=== PATIENT | male | born 1960 | race Caucasian/White ===

== ENCOUNTER 2024-07-03 17:05 | Inpatient (IN) | payer OTHER ==
[2024-07-03 17:56] LABS: #Basophils 0.06 10x3/uL (0.0-0.2); %Basophils 0.6 % (0.0-1.0); %Eosinophils 10.3 % (0.0-10.0); %Lymphocytes 19.2 % (21.0-51.0); %Monocytes 7.6 % (0.0-10.0); %Neutrophils 61.9 % (42.0-75.0); Hematocrit 30.1 % (42.0-52.0); Mean Corpuscular HGB CONC 36.5 g/dL (32.0-36.0); Mean Corpuscular Hemoglobin 29.8 pg (27.0-31.0); Mean Corpuscular Volume 81.6 fL (78.0-98.0); Mean Platelet Volume 10.4 fL (7.4-10.4); Platelet Count 270 10x3/uL (130-400); RBC Distribution Width 12.3 % (11.5-14.5); Red Blood Cell (RBC) Count 3.69 mill/uL (4.70-6.10)
[2024-07-03 18:10] LABS: ALT (SGPT) 8 U/L (8-55); AST (SGOT) 15 U/L (5-34); Albumin 3.7 g/dL (3.4-4.8); Alkaline Phosphatase 92 U/L (40-110); Anion Gap 19 mmol/L (10-20); BUN (Urea Nitrogen) 58 mg/dL (8.4-25.7); Bilirubin, Total 0.3 mg/dL (0.2-1.2); Calc. Creatinine Clearance 0 mL/min (70-130); Calcium 8.2 mg/dL (7.8-10.44); Carbon Dioxide 19 mmol/L (23-31); Chloride 96 mmol/L (98-107); Estimated GFR 11; Globulin 4.1 g/dL (2.4-3.5); Glucose 205 mg/dL (80-115); Lipase 43 U/L (8-78); Magnesium 1.8 mg/dL (1.6-2.6); Potassium 4.5 mmol/L (3.5-5.1); Protein, Total 7.8 g/dL (5.8-8.1); Sodium 129 mmol/L (136-145)
[2024-07-03 18:16] LABS: Troponin I 0.062 ng/mL (< 0.028)
[2024-07-03] MEDS ORDERED: Aspirin Chewable 81 MG TAB ONE (18:59)
[2024-07-03] MEDS ORDERED: fentaNYL 50 mcg/mL 1 mL Vial ONE (19:28)
[2024-07-03 20:53] LABS: Troponin I 0.049 ng/mL (< 0.028)
[2024-07-03] MEDS ORDERED: Ondansetron ODT 4 MG TAB PO PRN (23:41)
[2024-07-03] MEDS ORDERED: Ondansetron PF 4 MG/2 ML Vial IVP PRN (23:41)
[2024-07-03] MEDS ORDERED: Acetaminophen 650 MG Suppository PR PRN (23:41)
[2024-07-04] MEDS ORDERED: Glucagon 1 MG/ML KIT IM PRN (00:14)
[2024-07-04] MEDS ORDERED: Insulin Lispro 100 UNIT/ML 10 ML VIAL SC PRN (00:14)
[2024-07-04] MEDS ORDERED: Dextrose 50% Abboject 50 ML SYRINGE SLOW IVP PRN (00:14)
[2024-07-04] MEDS ORDERED: Dextrose 5% in Water 1,000 ML IV PRN (00:14)
[2024-07-04] MEDS: Lidocaine 4% Patch TD SCH (00:38)
[2024-07-04] MEDS: traMADol HCl 50 MG TAB PO SCH (00:38)
[2024-07-04] MEDS: Sodium Chloride 0.9% 500 ML IV SCH (00:39)
[2024-07-04 00:40] LABS: Hemoglobin A1c 6.6 % (4.0-6.0)
[2024-07-04 00:42] LABS: Anion Gap 17 mmol/L (10-20); BUN (Urea Nitrogen) 59 mg/dL (8.4-25.7); Calc. Creatinine Clearance 20 mL/min (70-130); Calcium 8.2 mg/dL (7.8-10.44); Carbon Dioxide 18 mmol/L (23-31); Cardiac Risk 6.2 (Less than 4.5); Chloride 99 mmol/L (98-107); Cholesterol 161 mg/dl (< 200 Desired); Estimated GFR 11; Glucose 211 mg/dL (80-115); HDL Cholesterol 26 mg/dL (>60 Neg Risk); LDL Cholesterol, Calculated 94 mg/dL; Magnesium 1.8 mg/dL (1.6-2.6); Potassium 4.2 mmol/L (3.5-5.1); Sodium 130 mmol/L (136-145); Triglycerides 206 mg/dL (Less than 150)
[2024-07-04 00:47] LABS: Troponin I 0.066 ng/mL (< 0.028)
[2024-07-04] MEDS: Insulin Lispro 100 UNIT/ML 10 ML VIAL SC PRN (06:20)
[2024-07-04] MEDS: Famotidine 20 MG TAB PO SCH (08:58)
[2024-07-04] MEDS: Amlodipine 10 MG TAB PO SCH (08:58)
[2024-07-04] MEDS: Heparin 5,000 UNITS/ML VIAL SC SCH (08:58)
[2024-07-04 09:28] LABS: Bacteria/HPF None Seen HPF (None Seen); Bilirubin Negative (Negative); Blood, Urine 2+ (Negative); CAUTI Indications for Culture Alt mental st,lethar; Clarity Clear (Clear); Glucose, Urine (Dipstick) 500 mg/dL (Negative); Ketone, Urine Negative (Negative); Leukocyte Negative Leu/uL (Negative); Nitrite Negative (Negative); Protein, Urine (Dipstick) 600 mg/dL (Neg-Trace); RBC/HPF 0-3 HPF (0-3); Specific Gravity, Urine 1.013 (1.002-1.036); Squamous Epithelial 0-3 HPF (0-3); Urobilinogen Normal mg/dL (Less than 2); WBC/HPF 0-3 HPF (0-3); pH, Urine 6.5 (5.0-9.0)
[2024-07-04 09:29] LABS: Urine Culture Reflex No No
[2024-07-04] MEDS: LIDOCAINE Patch Removal TOP SCH (10:53)
[2024-07-04] MEDS: HYDROcodone/Acetaminophen 5/325 mg Tablet PO PRN (11:44)
[2024-07-05 03:54] LABS: Creatinine, Urine 106.74 mg/dL (63-166)
[2024-07-05 04:18] LABS: #Basophils 0.08 10x3/uL (0.0-0.2); %Basophils 0.8 % (0.0-1.0); %Eosinophils 15.5 % (0.0-10.0); %Lymphocytes 25.3 % (21.0-51.0); %Monocytes 9.2 % (0.0-10.0); %Neutrophils 48.8 % (42.0-75.0); Hemoglobin 9.3 g/dL (14.0-18.0); Mean Corpuscular HGB CONC 34.4 g/dL (32.0-36.0); Mean Corpuscular Hemoglobin 29.6 pg (27.0-31.0); Mean Platelet Volume 10.2 fL (7.4-10.4); Platelet Count 231 10x3/uL (130-400); RBC Distribution Width 12.6 % (11.5-14.5); Red Blood Cell (RBC) Count 3.14 mill/uL (4.70-6.10)
[2024-07-05 04:37] LABS: Albumin 3.1 g/dL (3.4-4.8); Anion Gap 18 mmol/L (10-20); BUN (Urea Nitrogen) 70 mg/dL (8.4-25.7); BUN/Creatinine Ratio 12.26; CK (CPK) 230 U/L (30-200); Calc. Creatinine Clearance 18 mL/min (70-130); Calcium 7.8 mg/dL (7.8-10.44); Carbon Dioxide 16 mmol/L (23-31); Chloride 99 mmol/L (98-107); Estimated GFR 10; Glucose 165 mg/dL (80-115); Lipase 20 U/L (8-78); Magnesium 1.8 mg/dL (1.6-2.6); Phosphorus 6.5 mg/dL (2.3-4.7); Potassium 4.4 mmol/L (3.5-5.1); Sodium 129 mmol/L (136-145)
[2024-07-05] MEDS: Calcitriol 0.25 MCG CAP PO SCH (08:25)
[2024-07-05] MEDS: Carvedilol 25 MG TAB PO SCH (08:25)
[2024-07-05] MEDS: Famotidine 20 MG TAB PO SCH (08:26)
[2024-07-05] MEDS: Aspirin 81 mg Enteric Coated Tablet PO SCH (08:26)
[2024-07-05] MEDS: Sevelamer Carbonate 800 MG TAB PO SCH ×2 (08:27→13:56)
[2024-07-05] MEDS: Amlodipine 10 MG TAB PO SCH (08:28)
[2024-07-05] MEDS: Furosemide 80 MG TAB PO SCH (08:30)
[2024-07-05] MEDS: Sodium Bicarbonate Tab 325 MG TAB PO SCH (18:05)
[2024-07-05] MEDS: EPOETIN ALFA-EPBX (ESRD) 10,000 UNITS/ML VIAL SC SCH (18:07)
[2024-07-05] MEDS: hydrALAZINE 25 MG TAB PO SCH ×2 (18:10→23:11)
[2024-07-05] MEDS: Acetaminophen 325 MG TAB PO PRN (20:39)
[2024-07-06] MEDS: hydrALAZINE 20 MG/ML VIAL SLOW IVP PRN (05:02)
[2024-07-06 05:33] LABS: #Basophils 0.06 10x3/uL (0.0-0.2); %Basophils 0.6 % (0.0-1.0); %Lymphocytes 22.6 % (21.0-51.0); %Monocytes 8.1 % (0.0-10.0); %Neutrophils 53.4 % (42.0-75.0); Hematocrit 24.6 % (42.0-52.0); Hemoglobin 8.9 g/dL (14.0-18.0); Mean Corpuscular HGB CONC 36.2 g/dL (32.0-36.0); Mean Corpuscular Hemoglobin 30.2 pg (27.0-31.0); Mean Corpuscular Volume 83.4 fL (78.0-98.0); Mean Platelet Volume 10.6 fL (7.4-10.4); Platelet Count 222 10x3/uL (130-400); RBC Distribution Width 12.4 % (11.5-14.5); Red Blood Cell (RBC) Count 2.95 mill/uL (4.70-6.10)
[2024-07-06 05:47] LABS: Anion Gap 16 mmol/L (10-20); BUN (Urea Nitrogen) 76 mg/dL (8.4-25.7); Calc. Creatinine Clearance 17 mL/min (70-130); Calcium 7.7 mg/dL (7.8-10.44); Carbon Dioxide 19 mmol/L (23-31); Chloride 97 mmol/L (98-107); Estimated GFR 10; Glucose 142 mg/dL (80-115); Magnesium 1.9 mg/dL (1.6-2.6); Phosphorus 6.3 mg/dL (2.3-4.7); Potassium 4.2 mmol/L (3.5-5.1); Sodium 128 mmol/L (136-145)
[2024-07-06 09:21] LABS: Hep C Index 15.18 S/CO (0-0.79)
[2024-07-06] MEDS: cloNIDine 0.1 MG TAB PO SCH (09:23)
[2024-07-06 09:51] LABS: Hep B Core Total Ab REACTIVE (NonReactive); Hep B Core Total Index 5.94 S/CO (0-0.79)
[2024-07-06] MEDS ORDERED: Heparin 10,000 UNITS/ 10 ML VIAL ONE (10:35)
[2024-07-06 10:56] LABS: HBSAB Concentration 18.31 mIU/mL; HBsAg Index 0.36 S/CO (0-0.99); Hep B Surf AB REACTIVE (NonReactive); Hep B Surf Ag NONREACTIVE S/CO (NonReactive); Hep C IgG Ab Reflex HepC Qnt S/CO (NonReactive)
[2024-07-06] MEDS: Gabapentin 400 MG CAP PO SCH ×2 (12:19→20:46)
[2024-07-06] MEDS: Docusate 100 MG CAP PO SCH ×2 (12:28→20:45)
[2024-07-06] MEDS ORDERED: Bisacodyl 5 MG TAB PO PRN (12:49)
[2024-07-06] MEDS ORDERED: Bisacodyl 10 MG SUPP PR PRN (12:49)
[2024-07-06] MEDS: Furosemide 80 MG TAB PO SCH (16:30)
[2024-07-07 04:39] LABS: #Basophils 0.05 10x3/uL (0.0-0.2); %Basophils 0.6 % (0.0-1.0); %Eosinophils 16.3 % (0.0-10.0); %Lymphocytes 25.2 % (21.0-51.0); %Monocytes 8.2 % (0.0-10.0); %Neutrophils 49.4 % (42.0-75.0); Hematocrit 26.3 % (42.0-52.0); Hemoglobin 9.2 g/dL (14.0-18.0); Mean Corpuscular Hemoglobin 29.4 pg (27.0-31.0); Mean Platelet Volume 10.6 fL (7.4-10.4); Platelet Count 244 10x3/uL (130-400); RBC Distribution Width 12.8 % (11.5-14.5); Red Blood Cell (RBC) Count 3.13 mill/uL (4.70-6.10)
[2024-07-07 05:36] LABS: Anion Gap 15 mmol/L (10-20); BUN (Urea Nitrogen) 62 mg/dL (8.4-25.7); Calc. Creatinine Clearance 19 mL/min (70-130); Calcium 7.8 mg/dL (7.8-10.44); Carbon Dioxide 20 mmol/L (23-31); Chloride 99 mmol/L (98-107); Estimated GFR 11; Glucose 165 mg/dL (80-115); Magnesium 2.1 mg/dL (1.6-2.6); Potassium 4.3 mmol/L (3.5-5.1); Sodium 130 mmol/L (136-145)
[2024-07-07] MEDS ORDERED: Heparin 10,000 UNITS/ 10 ML VIAL ONE (10:40)
[2024-07-08 06:10] LABS: #Basophils 0.04 10x3/uL (0.0-0.2); %Basophils 0.4 % (0.0-1.0); %Lymphocytes 18.9 % (21.0-51.0); %Monocytes 8.5 % (0.0-10.0); %Neutrophils 57.8 % (42.0-75.0); Hematocrit 25.5 % (42.0-52.0); Hemoglobin 8.8 g/dL (14.0-18.0); Mean Corpuscular HGB CONC 34.5 g/dL (32.0-36.0); Mean Corpuscular Hemoglobin 30.1 pg (27.0-31.0); Mean Corpuscular Volume 87.3 fL (78.0-98.0); Mean Platelet Volume 11.2 fL (7.4-10.4); Platelet Count 239 10x3/uL (130-400); RBC Distribution Width 12.8 % (11.5-14.5); Red Blood Cell (RBC) Count 2.92 mill/uL (4.70-6.10)
[2024-07-08 06:11] LABS: Anion Gap 16 mmol/L (10-20); BUN (Urea Nitrogen) 43 mg/dL (8.4-25.7); Calc. Creatinine Clearance 23 mL/min (70-130); Calcium 8.1 mg/dL (7.8-10.44); Carbon Dioxide 21 mmol/L (23-31); Chloride 99 mmol/L (98-107); Estimated GFR 14; Glucose 165 mg/dL (80-115); Potassium 4.7 mmol/L (3.5-5.1); Sodium 131 mmol/L (136-145)
[2024-07-08] MEDS ORDERED: Milk Of Magnesia 30 ML UDCUP PO PRN (11:20)
[2024-07-08] MEDS: Losartan 25 MG TAB PO SCH (14:22)
[2024-07-08] MEDS: Senokot S 8.6-50 MG TAB PO SCH (20:44)
[2024-07-09 05:42] LABS: #Basophils 0.04 10x3/uL (0.0-0.2); %Basophils 0.4 % (0.0-1.0); %Eosinophils 17.6 % (0.0-10.0); %Lymphocytes 19.2 % (21.0-51.0); %Monocytes 8.8 % (0.0-10.0); %Neutrophils 53.3 % (42.0-75.0); Hematocrit 25.2 % (42.0-52.0); Hemoglobin 8.6 g/dL (14.0-18.0); Mean Corpuscular HGB CONC 34.1 g/dL (32.0-36.0); Mean Corpuscular Hemoglobin 29.8 pg (27.0-31.0); Mean Corpuscular Volume 87.2 fL (78.0-98.0); Mean Platelet Volume 10.7 fL (7.4-10.4); Platelet Count 238 10x3/uL (130-400); RBC Distribution Width 12.9 % (11.5-14.5); Red Blood Cell (RBC) Count 2.89 mill/uL (4.70-6.10)
[2024-07-09 06:10] LABS: Anion Gap 15 mmol/L (10-20); BUN (Urea Nitrogen) 51 mg/dL (8.4-25.7); Calc. Creatinine Clearance 19 mL/min (70-130); Calcium 8.2 mg/dL (7.8-10.44); Carbon Dioxide 22 mmol/L (23-31); Chloride 96 mmol/L (98-107); Estimated GFR 11; Glucose 171 mg/dL (80-115); Magnesium 1.9 mg/dL (1.6-2.6); Phosphorus 4.7 mg/dL (2.3-4.7); Potassium 4.3 mmol/L (3.5-5.1); Sodium 129 mmol/L (136-145)
[2024-07-09] MEDS: Losartan 25 MG TAB PO SCH (09:40)
[2024-07-10 05:17] LABS: #Basophils 0.04 10x3/uL (0.0-0.2); %Basophils 0.3 % (0.0-1.0); %Eosinophils 16.9 % (0.0-10.0); %Lymphocytes 13.3 % (21.0-51.0); %Monocytes 8.1 % (0.0-10.0); %Neutrophils 60.8 % (42.0-75.0); Hematocrit 26.8 % (42.0-52.0); Hemoglobin 9.3 g/dL (14.0-18.0); Mean Corpuscular HGB CONC 34.7 g/dL (32.0-36.0); Mean Corpuscular Hemoglobin 29.6 pg (27.0-31.0); Mean Corpuscular Volume 85.4 fL (78.0-98.0); Mean Platelet Volume 11.1 fL (7.4-10.4); Platelet Count 287 10x3/uL (130-400); RBC Distribution Width 12.8 % (11.5-14.5); Red Blood Cell (RBC) Count 3.14 mill/uL (4.70-6.10)
[2024-07-10 05:41] LABS: Anion Gap 16 mmol/L (10-20); BUN (Urea Nitrogen) 57 mg/dL (8.4-25.7); Calc. Creatinine Clearance 17 mL/min (70-130); Calcium 8.5 mg/dL (7.8-10.44); Carbon Dioxide 22 mmol/L (23-31); Chloride 96 mmol/L (98-107); Estimated GFR 10; Glucose 208 mg/dL (80-115); Potassium 4.6 mmol/L (3.5-5.1); Sodium 129 mmol/L (136-145)
[2024-07-10] MEDS ORDERED: Heparin 10,000 UNITS/ 10 ML VIAL ONE (10:59)
[2024-07-10] MEDS: Baclofen 10 MG TAB PO SCH ×2 (11:36→21:13)
[2024-07-10] MEDS: Insulin Glargine 30 UNITS/0.3 ML VIAL SC SCH (21:14)
[2024-07-11 04:48] LABS: #Basophils 0.06 10x3/uL (0.0-0.2); %Basophils 0.5 % (0.0-1.0); %Eosinophils 16.2 % (0.0-10.0); %Lymphocytes 16.2 % (21.0-51.0); %Neutrophils 56.5 % (42.0-75.0); Hematocrit 29.3 % (42.0-52.0); Hemoglobin 9.8 g/dL (14.0-18.0); Mean Corpuscular HGB CONC 33.4 g/dL (32.0-36.0); Mean Corpuscular Hemoglobin 29.2 pg (27.0-31.0); Mean Corpuscular Volume 87.2 fL (78.0-98.0); Mean Platelet Volume 10.9 fL (7.4-10.4); Platelet Count 307 10x3/uL (130-400); RBC Distribution Width 13.1 % (11.5-14.5); Red Blood Cell (RBC) Count 3.36 mill/uL (4.70-6.10)
[2024-07-11 05:15] LABS: Anion Gap 17 mmol/L (10-20); BUN (Urea Nitrogen) 37 mg/dL (8.4-25.7); Calc. Creatinine Clearance 24 mL/min (70-130); Calcium 8.9 mg/dL (7.8-10.44); Carbon Dioxide 23 mmol/L (23-31); Chloride 99 mmol/L (98-107); Estimated GFR 14; Glucose 133 mg/dL (80-115); Potassium 4.1 mmol/L (3.5-5.1); Sodium 135 mmol/L (136-145)
[2024-07-11] MEDS: Acetaminophen 325 MG TAB PO SCH (08:09)
[2024-07-11] MEDS ORDERED: Acetaminophen 325 MG TAB PO PRN (08:29)
[2024-07-11] MEDS ORDERED: Gabapentin 100 MG CAP PO SCH (08:30)
[2024-07-11] MEDS ORDERED: Heparin 10,000 UNITS/ 10 ML VIAL ONE (09:54)
[2024-07-11 11:17] LABS: Acetaminophen Less than 10 mcg/mL (Less than 10); Alcohol Less than 10.0 mg/dL (Less than 10); Salicylate Less than 8.0 mg/dL (Less than 8.0)
[2024-07-11 22:00] LABS: Anion Gap 17 mmol/L (10-20); BUN (Urea Nitrogen) 25 mg/dL (8.4-25.7); Calc. Creatinine Clearance 33 mL/min (70-130); Calcium 9.4 mg/dL (7.8-10.44); Carbon Dioxide 26 mmol/L (23-31); Chloride 100 mmol/L (98-107); Estimated GFR 22; Glucose 161 mg/dL (80-115); Sodium 139 mmol/L (136-145)
[2024-07-11 22:08] LABS: Troponin I 0.048 ng/mL (< 0.028)
[2024-07-11] MEDS: Dextrose 5% in Water 500 ML IV SCH (22:23)
[2024-07-11] MEDS: Ketorolac Tromethamine 30 MG (1 mL) VIAL IVP SCH (22:43)
[2024-07-11] MEDS: Morphine 2 MG/ML VIAL SLOW IVP SCH (23:20)
[2024-07-12] MEDS: Labetalol HCl 100 MG/20 ML VIAL SLOW IVP PRN (00:38)
[2024-07-12] MEDS ORDERED: Morphine 4 MG/ML VIAL SLOW IVP SCH (01:30)
[2024-07-12] MEDS ORDERED: fentaNYL 50 mcg/mL 1 mL Vial SLOW IVP SCH (01:45)
[2024-07-12 03:39] LABS: #Basophils 0.05 10x3/uL (0.0-0.2); %Basophils 0.4 % (0.0-1.0); %Eosinophils 9.4 % (0.0-10.0); %Lymphocytes 12.3 % (21.0-51.0); %Monocytes 11.4 % (0.0-10.0); %Neutrophils 66.1 % (42.0-75.0); Hematocrit 29.6 % (42.0-52.0); Hemoglobin 10.3 g/dL (14.0-18.0); Mean Corpuscular HGB CONC 34.8 g/dL (32.0-36.0); Mean Corpuscular Hemoglobin 29.9 pg (27.0-31.0); Mean Corpuscular Volume 85.8 fL (78.0-98.0); Mean Platelet Volume 10.5 fL (7.4-10.4); Platelet Count 328 10x3/uL (130-400); Red Blood Cell (RBC) Count 3.45 mill/uL (4.70-6.10)
[2024-07-12 03:50] LABS: Anion Gap 19 mmol/L (10-20); BUN (Urea Nitrogen) 28 mg/dL (8.4-25.7); Calc. Creatinine Clearance 31 mL/min (70-130); Calcium 9.5 mg/dL (7.8-10.44); Carbon Dioxide 23 mmol/L (23-31); Chloride 102 mmol/L (98-107); Estimated GFR 20; Glucose 148 mg/dL (80-115); Sodium 140 mmol/L (136-145)
[2024-07-12] MEDS ORDERED: Heparin 10,000 UNITS/ 10 ML VIAL ONE (09:57)
[2024-07-13 05:46] LABS: Anion Gap 17 mmol/L (10-20); BUN (Urea Nitrogen) 43 mg/dL (8.4-25.7); Calc. Creatinine Clearance 25 mL/min (70-130); Calcium 8.9 mg/dL (7.8-10.44); Carbon Dioxide 22 mmol/L (23-31); Chloride 101 mmol/L (98-107); Estimated GFR 16; Glucose 165 mg/dL (80-115); Magnesium 1.9 mg/dL (1.6-2.6); Potassium 4.2 mmol/L (3.5-5.1); Sodium 136 mmol/L (136-145)
[2024-07-13 06:42] LABS: #Basophils 0.05 10x3/uL (0.0-0.2); %Basophils 0.4 % (0.0-1.0); %Eosinophils 11.3 % (0.0-10.0); %Lymphocytes 12.2 % (21.0-51.0); %Monocytes 7.9 % (0.0-10.0); %Neutrophils 67.7 % (42.0-75.0); Hematocrit 30.8 % (42.0-52.0); Hemoglobin 10.8 g/dL (14.0-18.0); Mean Corpuscular HGB CONC 35.1 g/dL (32.0-36.0); Mean Corpuscular Volume 85.6 fL (78.0-98.0); Mean Platelet Volume 10.6 fL (7.4-10.4); Platelet Count 322 10x3/uL (130-400)
[2024-07-13] MEDS: Tuberculin PPD 0.1 ML SYRINGE (10 TEST VIAL) I-DERMAL SCH (14:13)
[2024-07-14 04:50] LABS: #Basophils 0.05 10x3/uL (0.0-0.2); %Basophils 0.5 % (0.0-1.0); %Eosinophils 14.4 % (0.0-10.0); %Lymphocytes 24.3 % (21.0-51.0); %Neutrophils 52.3 % (42.0-75.0); Mean Corpuscular HGB CONC 34.5 g/dL (32.0-36.0); Mean Corpuscular Hemoglobin 29.2 pg (27.0-31.0); Mean Corpuscular Volume 84.5 fL (78.0-98.0); Mean Platelet Volume 10.8 fL (7.4-10.4); Platelet Count 287 10x3/uL (130-400); RBC Distribution Width 12.8 % (11.5-14.5); Red Blood Cell (RBC) Count 3.43 mill/uL (4.70-6.10)
[2024-07-14 05:15] LABS: Anion Gap 16 mmol/L (10-20); BUN (Urea Nitrogen) 56 mg/dL (8.4-25.7); Calc. Creatinine Clearance 21 mL/min (70-130); Calcium 8.9 mg/dL (7.8-10.44); Carbon Dioxide 22 mmol/L (23-31); Chloride 98 mmol/L (98-107); Estimated GFR 13; Glucose 136 mg/dL (80-115); Potassium 3.8 mmol/L (3.5-5.1); Sodium 132 mmol/L (136-145)
[2024-07-14] MEDS ORDERED: Heparin 10,000 UNITS/ 10 ML VIAL ONE (10:00)
[2024-07-14] MEDS: Losartan 25 MG TAB PO SCH (11:51)
[2024-07-15 05:08] LABS: Anion Gap 19 mmol/L (10-20); BUN (Urea Nitrogen) 39 mg/dL (8.4-25.7); Calc. Creatinine Clearance 25 mL/min (70-130); Calcium 8.6 mg/dL (7.8-10.44); Carbon Dioxide 20 mmol/L (23-31); Chloride 98 mmol/L (98-107); Estimated GFR 17; Glucose 119 mg/dL (80-115); Potassium 4.4 mmol/L (3.5-5.1); Sodium 133 mmol/L (136-145)
[2024-07-15 09:19] LABS: #Basophils 0.09 10x3/uL (0.0-0.2); %Basophils 0.9 % (0.0-1.0); %Eosinophils 11.9 % (0.0-10.0); %Lymphocytes 17.4 % (21.0-51.0); %Monocytes 7.9 % (0.0-10.0); %Neutrophils 61.3 % (42.0-75.0); Hematocrit 31.7 % (42.0-52.0); Hemoglobin 10.8 g/dL (14.0-18.0); Mean Corpuscular HGB CONC 34.1 g/dL (32.0-36.0); Mean Corpuscular Hemoglobin 29.2 pg (27.0-31.0); Mean Corpuscular Volume 85.7 fL (78.0-98.0); Mean Platelet Volume 9.8 fL (7.4-10.4); Platelet Count 399 10x3/uL (130-400); RBC Distribution Width 12.9 % (11.5-14.5)
[2024-07-15 09:50] LABS: Platelet Adequacy Comment Platelets Normal; Polychromasia SLIGHT = 2-3 cells HPF (0-2)
[2024-07-15] MEDS ORDERED: Heparin 10,000 UNITS/ 10 ML VIAL ONE (09:59)
[2024-07-16] MEDS: READ PPD TEST SITE PO SCH (09:00)
[2024-07-17] MEDS: Artificial Tear Ophth Sol 15 ML BOT EA EYE PRN (01:34)
[2024-07-17] MEDS: Polyethylene Glycol 3350 17 GM Packet PO PRN (11:40)
[2024-07-17 20:35] VITALS: BMI 24.4
[2024-07-18] MEDS ORDERED: Heparin 10,000 UNITS/ 10 ML VIAL ONE (10:40)
[2024-07-19 06:04] LABS: #Basophils 0.08 10x3/uL (0.0-0.2); %Basophils 0.8 % (0.0-1.0); %Eosinophils 10.5 % (0.0-10.0); %Lymphocytes 19.1 % (21.0-51.0); Hematocrit 31.4 % (42.0-52.0); Mean Corpuscular Hemoglobin 29.1 pg (27.0-31.0); Mean Corpuscular Volume 83.1 fL (78.0-98.0); Platelet Count 365 10x3/uL (130-400); RBC Distribution Width 13.4 % (11.5-14.5); Red Blood Cell (RBC) Count 3.78 mill/uL (4.70-6.10)
[2024-07-19 06:18] LABS: Albumin 3.2 g/dL (3.4-4.8); Anion Gap 16 mmol/L (10-20); BUN (Urea Nitrogen) 30 mg/dL (8.4-25.7); BUN/Creatinine Ratio 10.07; Calc. Creatinine Clearance 31 mL/min (70-130); Calcium 9.1 mg/dL (7.8-10.44); Carbon Dioxide 22 mmol/L (23-31); Chloride 99 mmol/L (98-107); Estimated GFR 22; Glucose 133 mg/dL (80-115); Sodium 133 mmol/L (136-145)
[2024-07-19] MEDS: Losartan 25 MG TAB PO SCH (09:17)
[2024-07-19 15:13] LABS: Hep C PCR-Quant HCV Not Detected IU/mL (.)
[2024-07-20] MEDS ORDERED: Heparin 10,000 UNITS/ 10 ML VIAL ONE (10:45)
[2024-07-20] MEDS: Carvedilol 25 MG TAB PO SCH ×2 (13:09→22:18)
[2024-07-21 06:43] VITALS: BMI 24.1
[2024-07-21 08:50] VITALS: BP 184/80; TEMP 98.3
[2024-07-21] MEDS: NIFEdipine XL 30 MG ER.TAB PO SCH (09:29)
== END 2024-07-21 14:53 | DRG 682 ==
LOC: ERS 17:05 → 2NO 22:36 → EEVIPCON 22:36 → OBSVTOIN 07-04 10:27 → IMCU/EMU 07-11 18:58 → 2NO 07-13 00:49 → T4-A 07-15 20:52
PROVIDERS: ADMIT Internal Medicine; ATTEND Internal Medicine
PROC: 5A1D70Z Performance of Urinary Filtration, Intermittent, Less than 6 Hours Per Day (ICD-10-PCS; 2024-07-06)
PROC: XX20X89 Monitoring of Brain Electrical Activity, Computer-aided Detection and Notification, New Technology Group 9 (ICD-10-PCS; principal; 2024-07-12)
DX: N17.9 Acute kidney failure, unspecified (principal); G92.8 Other toxic encephalopathy; I21.A1 Myocardial infarction type 2; E87.1 Hypo-osmolality and hyponatremia; I13.2 Hypertensive heart and chronic kidney disease with heart failure and with stage 5 chronic kidney disease, or end stage renal disease; E87.20 Acidosis, unspecified; I50.30 Unspecified diastolic (congestive) heart failure; N18.6 End stage renal disease; E11.22 Type 2 diabetes mellitus with diabetic chronic kidney disease; E11.65 Type 2 diabetes mellitus with hyperglycemia; R29.6 Repeated falls; D63.1 Anemia in chronic kidney disease; K59.00 Constipation, unspecified; N25.81 Secondary hyperparathyroidism of renal origin; G89.29 Other chronic pain; M54.9 Dorsalgia, unspecified; T42.8X5A Adverse effect of antiparkinsonism drugs and other central muscle-tone depressants, initial encounter; T42.6X5A Adverse effect of other antiepileptic and sedative-hypnotic drugs, initial encounter; X58.XXXA Exposure to other specified factors, initial encounter; Z88.0 Allergy status to penicillin
CPT/HCPCS: 36415; 36416; 70450; 71045; 72125; 72128; 72131; 74176; 76770; 80048; 80053; 80061; 80069; 80307; 81001; 82140; 82550; 82570; 83036; 83690; 83735; 83880; 83930; 83935; 84100; 84145; 84300; 84443; 84484; 85025; 86580; 86704; 86706; 86803; 87340; 87428; 87522; 90935; 93005; 93010; 93306; 95705; 96360; 96372; G0257; G0378; J0360; J1644; J1815; J1885; J2272; J3010; J7030; Q5105